=== PATIENT | female | born 1995 | race Caucasian/White ===

== ENCOUNTER 2019-01-11 18:26 | Emergency (ER) | payer OTHER, SELFPAY ==
[2019-01-11 18:28] VITALS: BP 128/84; PULSE 83; RESP 16; TEMP 36.8; O2SAT 100; BMI 28.3
--- NOTE | 2019-01-11 18:43 | ED.DCSUM_ITS ---
History of Present Illness Chief Complaint: Lower Extremity Injury Informant: Patient Onset: Days Context: Gradual Onset Timing: Continuous Current Severity: Moderate Maximum Severity: Moderate Narrative: The patient presents to the emergency department left lower extremity injury. 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 She states that she suffered turf burn to her left leg. States today, she had some crusting and some pain when she would bear weight. She denies any fevers or chills. She also describes mild head injury, but never lost consciousness. She is not on anticoagulants. She is otherwise been in her normal state of health. Prior similar symptoms: No Recent Illness/Hospitalization: No Past Medical History - Allergies and Home Meds Allergies/Adverse Reactions: Allergies No Known Allergies Allergy (Verified 01/11/19 18:27) Primary Care Physician: Jamir Holguin MD [Primary Care Provider] - Prior records reviewed: Yes Past Medical History: None Surgical History: no surgical history Smoking Status: Never smoker Review of Systems General: Denies: Chills, Fever, Sweats Eyes: Denies: Visual changes - bilaterally, Diplopia ENT: Denies: Rhinorrhea, Sore throat Cardiovascular: Denies: Chest pain, Palpitations Respiratory: Denies: Dyspnea, Cough, Dyspnea on exertion Gastrointestinal: Denies: Abdominal pain, Nausea, Vomiting, Diarrhea, Melena, Hematochezia Genitourinary: Denies: Dysuria, Hematuria, Frequency Musculoskeletal: Denies: Back pain, Extremity Pain Skin: Denies: Rash, Wounds Neurological: Denies: Headache, Weakness, Numbness Physical Exam Vital Signs/Narrative: Vital Signs Temp Pulse Resp BP Pulse Ox 01/11/19 18:28 98.3 F 83 16 128/84 H 100 Inital Vital Signs reviewed: Yes General: Well nourished, Well developed, No Acute Distress Head: Normocephalic, Atraumatic Eyes: Perrl, EOMI ENT: Moist mucous membranes, No rhinorrhea Neck: Supple, Nontender Cardiovascular: Regular rate, Regular rhythm, No murmurs Respiratory: No distress, CTA bilaterally, Chest nontender Abdomen: Soft, Nontender, Nondistended, Normal bowel sounds Back: Nontender, Normal Inspection Extremities: No edema, Tenderness, - - Patient does have abrasions of bilateral lower extremities. The left is worse. There is some old crusting of the area. She has mild pain at the head of the fibula. Skin: Normal color, No rash Neurological: Alert, Oriented x3, Cranial nerves II-XII grossly intact, Normal Strength, Normal Sensation Psychological: Normal affect, Normal Mood Diagnostic/Tx/Re-eval Clinical Impression(s) from Imaging Studies Tibia/Fibula X-Ray 01/11/19 19:00 IMPRESSION: Normal x-ray examination of the tibia and fibula. Electronically Signed: Sadie Mcwilliams MD at 19:46 EDT Tel , Service support , - Medical Decision Making Patient presents with abrasion with some crusting over top. She does have some pain in the proximal fibula. X-rays were obtained. There is no evidence of acute fracture. The patient was started on Keflex. She will also be given Bactroban ointment. She was counseled on local wound care and reasons to return. She will be discharged home. Left lower extremity abrasion with cellulitis ED Disposition - Plan for ED Patient: Disposition: Home or Assisted Living Instructions: Abrasion Prescriptions: Mupirocin [Bactroban] 1 applic TOPICAL TID #1 tube Prescription Printed Cephalexin [Keflex] 500 mg PO Q6 #40 cap Prescription Printed Referrals: Jamir Holguin MD [Primary Care Provider] -
--- NOTE | 2019-01-11 19:00 | RAD_ITS ---
STUDY: X-RAY - LEFT TIBIA AND FIBULA REASON FOR EXAM: Female, 23 years old. Rugby injury. TECHNIQUE: 2 view(s) of the tibia and fibula were obtained. COMPARISON: None. FINDINGS: Normal visualized tibia. Normal visualized fibula. The soft tissue structures are unremarkable. RAD/Tibia & Fibula 2 Views IMPRESSION: Normal x-ray examination of the tibia and fibula. Electronically Signed: Sadie Mcwilliams MD at 19:46 EDT Tel , Service support ,
[2019-01-11] MEDS: Cephalexin Suspension 250 MG/5 ML PO.SYRINGE 500 MG PO (19:20)
[2019-01-11 20:04] VITALS: PULSE 76; RESP 16; O2SAT 98
== END 2019-01-11 20:05 | disposition home or self-care (01) ==
LOC: ED 19:11
PROVIDERS: Emergency Provider Emergency Medicine; Family Provider Pediatrics; PCP Pediatrics
DX: S80.812A Abrasion, left lower leg, initial encounter (principal); L03.116 Cellulitis of left lower limb; X58.XXXA Exposure to other specified factors, initial encounter; Y93.63 Activity, rugby; Y92.89 Other specified places as the place of occurrence of the external cause; Y99.8 Other external cause status
CPT/HCPCS: 73590; 99283